=== PATIENT | female | born 1995 | race Two or more races ===

== ENCOUNTER 2024-10-18 23:02 | Observation (INO) | payer OTHER, SELFPAY ==
[2024-10-18 23:19] VITALS: BP 117/76; PULSE 95; RESP 18; RESP 98; TEMP 37
[2024-10-18 23:23] VITALS: BMI 31.1
[2024-10-18 23:24] VITALS: TEMP 37
[2024-10-18 23:45] VITALS: TEMP 37
[2024-10-18] MEDS: ACETAMINOPHEN 325 MG TABLET 1000 MG PO (23:45)
[2024-10-18 23:59] LABS: ROM Kit Lot # 57807112; ROM Swab Mixed By: DAVIH1; Rupture of Fetal Membranes Negative (Negative); Swb Mxed in Solvent 1 min? Yes
== END 2024-10-19 00:08 | disposition home or self-care (01) ==
PROVIDERS: Admitting Provider Obstetrics & Gynecology; Visit Provider Obstetrics & Gynecology
DX: O26.892 Other specified pregnancy related conditions, second trimester (principal); Z3A.20 20 weeks gestation of pregnancy; R10.30 Lower abdominal pain, unspecified; M54.9 Dorsalgia, unspecified; R51.9 Headache, unspecified
CPT/HCPCS: 59899; 84112; G0378; A9270

== ENCOUNTER 2025-01-12 23:31 | Observation (INO) | payer OTHER, MEDICAID, SELFPAY ==
[2025-01-12 23:52] VITALS: BP 116/69; PULSE 90
[2025-01-12 23:53] VITALS: PULSE 92; O2SAT 99
[2025-01-12 23:58] VITALS: PULSE 83; RESP 18; TEMP 37.1; O2SAT 99; BMI 31.8
[2025-01-13] VITALS (45 sets, daily range): BP systolic 113–124; BP diastolic 64–70; PULSE 72–126; O2SAT 93–100
[2025-01-13] MEDS: ACETAMINOPHEN 500 MG TABLET 1000 MG PO (00:30)
[2025-01-13] MEDS: TERBUTALINE SULF INJ 1 MG/ML VIAL 0.25 MG SC ×2 (01:27→01:58)
== END 2025-01-13 03:36 | disposition home or self-care (01) ==
PROVIDERS: Admitting Provider Obstetrics & Gynecology; Visit Provider Obstetrics & Gynecology
DX: O26.899 Other specified pregnancy related conditions, unspecified trimester (principal); Z3A.00 Weeks of gestation of pregnancy not specified; R10.9 Unspecified abdominal pain
CPT/HCPCS: 59025; 59899; 96372; J3105; A9270

== ENCOUNTER 2025-03-11 19:37 | Inpatient (IN) | payer OTHER, MEDICAID, SELFPAY ==
[2025-03-11] VITALS (9 sets, daily range): BP systolic 112–149; BP diastolic 67–91; PULSE 83–103; RESP 18–99; TEMP 36.6–36.8; BMI 32.1
[2025-03-11 20:30] LABS: ROM Kit Lot # 58102387
[2025-03-11 20:31] LABS: ROM Swab Mixed By: CARMP2; Rupture of Fetal Membranes Positive (Negative); Swb Mxed in Solvent 1 min? Yes
--- NOTE | 2025-03-11 20:48 | XR_ITS ---
Examination: age limited. TECHNIQUE: Limited transabdominal sonographic images pelvis Date and time: March 11, 2025, 210 hours INDICATIONS: Suspected pelvic contractions today, unknown presentation and weight FINDINGS: Viable intrauterine gestation cephalic presentation, spine posterior Cardiac motion 140 BPM. Estimated gestational age 38 weeks 5 days. Estimated weight 3615 g IMPRESSION: Viable intrauterine gestation cephalic presentation
[2025-03-11 21:09] LABS: Collection Type, Urine Clean Catch
[2025-03-11 21:11] LABS: Basophils # (Auto) 0.0 Thou/mm3 (0.0-0.2); Basophils % (Auto) 0 % (0-2.5); Eosinophils # (Auto) 0.0 Thou/mm3 (0.0-0.5); Eosinophils % (Auto) 0 % (0-10); Hematocrit 32.1 % (36.0-46.0); Hemoglobin 10.5 g/dL (12.0-16.0); Immature Granulocytes Auto 0.05 Thou/mm3 (0.00-0.00); Lymphocytes # (Auto) 2.3 Thou/mm3 (1.0-4.8); Lymphocytes % (Auto) 18 % (10-50); Mean Corpuscular HGB Conc 32.7 g/dl (31.0-37.0); Mean Corpuscular Hemoglobin 25.2 pg (25.0-35.0); Mean Corpuscular Volume 77 fL (80-100); Monocytes # (Auto) 0.8 Thou/mm3 (0.0-0.8); Monocytes % (Auto) 6 % (0-12); Neutrophils # (Auto) 9.8 Thou/mm3 (1.8-7.7); Neutrophils % (Auto) 75 % (37-80); Nucleated Red Blood Cell # 0.00 Thou/mm3 (0.00-0.00); Nucleated Red Blood Cell % 0 /100 WBC (0); Platelet Count 343 Thou/mm3 (140-440); RDW Standard Deviation 39.9 fL (36.4-46.3); Red Blood Count 4.17 Miln/mm3 (4.00-5.20); White Blood Count 13.0 Thou/mm3 (3.6-11.0)
--- NOTE | 2025-03-11 21:14 | PD.LDHP ---
Documentation for date of: 03/11/25 OB Labor/Induct. HPI History of Present Illness : 7 Para: 3 Term pregnancies: 3 pregnancies: 0 Living children: 3 History of Abortions: Spontaneous and Elective: 3 History of Vaginal deliveries: 3 History of sections: No History of : No Date of last menstrual period: 06/14/25 ALEJANDRA: 03/13/25 Gestational age based on last menstrual period: -13 History of present illness: 29-year-old 7 para 3-0-3-3 with intrauterine at 39 weeks and 5 days presents to maternal infant unit complaining of uterine contractions since 0500 on 03/11 and leaking clear fluid since 1100 on 03/11. She reports normal movement and denies any vaginal bleeding. She has care in [place] at [facility]. She has a copy of her record. She had a urine drug screen positive for marijuana in her and she had an abnormal 1 hour glucose tolerance test however her 3-hour GTT was within normal limits. She is multiparous and desires voluntary sterilization. She has a [facility] consent signed on January 29. Comments: PMHx: x 3, Spon Ab x 3. Anxiety and Depression PSHx: D and C Allergies: Bactrim FHx: see record Meds: MVI. History of Present Adequate Care: Yes Labs Labs: Positive: Rubella Titre, Negative: RPR, Hepatitis B, HIV, Chlamydia, Gonorrhea and Group Beta Strep and Unknown: Herpes Type 1 and Herpes Type 2 Review of Systems Review of Systems Narrative Review of Systems: Denies any chest pain palpitations cough fever shortness of breath or lower extremity pain. She denies any headache change in vision or right upper quadrant pain. Past Medical History Surgical History SURGICAL: Negative Section Meds Home Medications and Allergies Home Medications ?Medication ?Instructions ?Recorded ?Confirmed ?Type vits no.126-ferrous fum 1 tab PO .QD 10/18/24 03/11/25 History 28 mg iron-folic acid 800 mcg tablet (Classic ) Allergies Allergy/AdvReac Type Severity Reaction Status Date / Time sulfamethoxazole Allergy Intermediate Rash, Verified 03/11/25 20:34 swelling in her throat, & fever OB Exam Physical Exam Vital signs: Temp Pulse Resp BP 98.3 F 95 18 149/74 H 08/25/25 19:59 03/11/25 21:00 03/11/25 19:59 03/11/25 21:00 Routine HEENT Exam Comments: Within normal limits Routine Respiratory Exam Comments: Clear to auscultation bilaterally Routine Cardiovascular Exam Comments: Regular rate and Routine Abdominal Exam Comments: Gravid, term size, EFW 3610g Detailed Labor and Delivery Exam Dilation (cm): 3.5 Effacement (%): 50 station: -2 Presentation: Vertex Membranes: ruptured Comments: AmniSure + at 20:40 Routine Extremities Exam Comments: Nontender Routine Skin Exam Comments: No gross rashes or lesions Routine Neurological Exam Comments: No deficit OB Results Labs 03/11/25 20:57 03/11/25 20:57 Impressions Impression: IUP at 39 weeks and 5 days Spontaneous rupture of membranes Multiparity desires voluntary sterilization. Early Labor Anticipate spontaneous vaginal delivery Informed consent was obtained. Patient was made aware of the risks and complications of OVD and C/S and agrees with these modes of delivery if indicated.
[2025-03-11 21:18] LABS: Bilirubin,Urine Negative (Negative); Blood,Urine 1+ (Negative); Clarity,Urine Clear (Clear/Hazy); Color,Urine Yellow (Lt Yel-Yel); Glucose, Urine Negative (Negative); Ketones,Urine 1+ (Negative); Leukocyte Esterase,Urine Positive (Negative); Nitrite,Urine Negative (Negative); PH,Urine 6.5 (5.0-7.0); Protein,Urine 1+ (Neg - Trace); RBC,Urine 3 /hpf (0-3); Specific Gravity,Urine 1.027 (1.001-1.035); Squamous Epithelial Cell,Urine 4 /hpf (0-5); Urobilinogen,Urine Negative mg/dL (0.0-1.0); WBC,Urine 4 /hpf (0-5)
[2025-03-11] MEDS: RINGERS LACTATED 1000 ML 1,000 ML 125 ML IV (21:24)
[2025-03-11 21:31] LABS: Alanine Aminotransferase < 7 U/L (10-49); Albumin, Serum 4.0 gm/dL (3.5-5.0); Albumin/Globulin Ratio 1.3 (1.2-2.2); Alkaline Phosphatase 155 U/L (46-116); Anion Gap 11 (7-16); Aspartate Amino Transferase 15 U/L (0-34); BUN/Creatinine Ratio 8 Ratio (12-20); Bilirubin,Total 0.5 mg/dL (0.3-1.2); Blood Urea Nitrogen 5 mg/dL (9-23); Calcium 10.0 mg/dL (8.3-10.6); Calcium (Corrected) 10.0 mg/dL (8.5-10.1); Carbon Dioxide 21.4 mMol/L (20.0-31.0); Chloride 105 mMol/L (98-107); Creatinine (Component) 0.6 mg/dL (0.6-1.3); Estimated Creatinine Clearance 148.4 mL/min (>60); Globulin 3.1 gm/dL (2.3-3.5); Glucose 70 mg/dL (74-106); LDH (Lactate Dehydrogenase) 144 U/L (120-246); Osmolality,Calculated 269 (275-295); Potassium 3.8 mMol/L (3.4-5.1); Sodium 137 mMol/L (136-145); Total Protein 7.1 gm/dL (5.7-8.2); Uric Acid 4.6 mg/dL (3.1-7.8); eGFR > 60 See Note
[2025-03-11 21:34] LABS: Fibrinogen 466 mg/dL (175-375); INR 0.9 (0.9-1.3); Partial Thromboplastin Time 23.8 Seconds (22.0-36.0); Prothrombin Time 10.1 Seconds (9.0-12.2)
[2025-03-11 21:47] LABS: Syphilis Nonreactive (Nonreactive)
[2025-03-11] MEDS: fentaNYL CIT INJ 50 mCg/ML AMP 2ML 100 MCG IVP (23:08)
[2025-03-12] VITALS (185 sets, daily range): BP systolic 84–128; BP diastolic 51–91; PULSE 59–217; RESP 17–20; TEMP 36.5–37.3; O2SAT 87–100
[2025-03-12] MEDS: fentaNYL CIT INJ 50 mCg/ML AMP 2ML 100 MCG IVP (01:38)
[2025-03-12] MEDS: RINGERS LACTATED 1000 ML 1,000 ML 125 ML IV ×2 (05:06→06:58)
[2025-03-12 06:01] LABS: Amphetamine/Metham Scrn,Ur OB Negative (Negative); Benzoylecgonine Screen, Ur OB Negative (Negative); Opiate Screen,Urine OB Negative (Negative); THC Screen,Urine OB Negative (Negative)
[2025-03-12] MEDS: ONDANSETRON INJ 2 MG/ML INJ 2 ML 4 MG IVP (10:43)
[2025-03-12] MEDS: Ampicillin Inj 2,000 MG in SODIUM CHLORIDE 0.9% (POP) 100 ML 200 MG IV (10:44)
[2025-03-12] MEDS: OXYTOCIN in NS 30 units 30 UNIT/500 ML BAG IV (12:48)
[2025-03-12] MEDS: OXYTOCIN in NS 20 units 20 UNIT/1,000 ML BAG 125 UNIT IV (14:12)
[2025-03-12] MEDS: OXYTOCIN INJ 10 UNIT/ML VIAL IM (14:12)
[2025-03-12] MEDS: BENZO/LANO/ALOE (Dermoplast) 60 GM CAN 1 SPRAY TOP (14:13)
[2025-03-12] MEDS: TRANEXAMIC ACID 1,000 MG IVPB 1,000 MG/100 ML BAG 200 MG IV (14:13)
--- NOTE | 2025-03-12 14:23 | OBDSUM_ITS ---
Data ([place]) Data Hx Section: No : 7 Term: 3 : 0 Livin Abortions: Spontaneous & Theraputic: 3 Delivery Data ([place]) Labor Data Initiation of labor: Augmentation Induction/Augmentation Agent: Pitocin and Artificial ROM ROM date: 03/11/25 ROM time: 11:00 Amniotic membrane rupture type: Spontaneous Amniotic fluid description: Clear Delivery Data EDC: 02/18/25 EDC calculated by:: LMP/early US confirmation Date of arrival to unit: 03/11/25 Time of arrival to unit: 14:24 Onset of labor date: 03/11/25 Onset of labor time: 17:30 Complete dilation date: 03/12/25 Complete dilation time: 13:39 [place] delivery date: 03/12/25 delivery time: 13:49 Gestational age (weeks): 39 Gestational age (days): 6 Placenta delivery date: 03/12/25 Placenta delivery time: 13:52 Stage 1 total time: Labor - Stage 1 Duration 20 hours and 9 minutes Delivered by: Caitlin Zhang Delivery nurse: MICHEAL Burgess Neworn nurse: MICHEAL Valladares Machine Worker at delivery: No Support person(s) at delivery: Two bestfriends Other staff at delivery: weight control lecturerMichelle BURTON Delivery Method Delivery method: Normal Vaginal Delivery Presentation: Vertex position: OA Anesthesia Type Anesthesia Type: Epidural Delivery Room Medications Delivery room medications: Pitocin 10 u IM, Pitocin 20 u IV and Cytotec 800 ID Placenta Placenta delivery description: Spontaneous (inspected intact) Cord blood sent to lab: Yes cord blood collection: Cord Blood Type Episiotomy Episiotomy description: None (intact) EBL Estimated blood loss (ml): 400 Umbilical Cord cord description: Around Extremity (loop of cord near shoulder, posterior arm) [place] Data ([place]) [place] Data order: 1 [place]'s gender: Male Identification band number: [id number] weight (gms): 3610 g Weight (pounds): 7 lbs and 15.3 ozs [place] length: 55.88 cm 1 minute: 9 5 minutes: 9
[2025-03-12] MEDS: IBUPROFEN TAB 400 MG TABLET 800 MG PO (15:30)
--- NOTE | 2025-03-12 16:21 | PC.NURSE ---
1619: SHAHEED Zhang called. Orders received to D/C scheduled ampicillin.
[2025-03-12] MEDS: ACETAMINOPHEN 325 MG TABLET 650 MG PO ×2 (17:56→22:35)
[2025-03-12] MEDS: DOCUSATE SOD 100 MG CAPSULE PO (20:08)
[2025-03-12 22:20] LABS: Basophils # (Auto) 0.0 Thou/mm3 (0.0-0.2); Basophils % (Auto) 0 % (0-2.5); Eosinophils # (Auto) 0.0 Thou/mm3 (0.0-0.5); Eosinophils % (Auto) 0 % (0-10); Hematocrit 27.2 % (36.0-46.0); Immature Granulocytes Auto 0.03 Thou/mm3 (0.00-0.00); Lymphocytes # (Auto) 2.2 Thou/mm3 (1.0-4.8); Lymphocytes % (Auto) 19 % (10-50); Mean Corpuscular HGB Conc 32.4 g/dl (31.0-37.0); Mean Corpuscular Hemoglobin 25.5 pg (25.0-35.0); Mean Corpuscular Volume 79 fL (80-100); Monocytes # (Auto) 1.0 Thou/mm3 (0.0-0.8); Monocytes % (Auto) 9 % (0-12); Neutrophils # (Auto) 8.2 Thou/mm3 (1.8-7.7); Neutrophils % (Auto) 72 % (37-80); Nucleated Red Blood Cell # 0.00 Thou/mm3 (0.00-0.00); Nucleated Red Blood Cell % 0 /100 WBC (0); Platelet Count 296 Thou/mm3 (140-440); RDW Standard Deviation 40.9 fL (36.4-46.3); Red Blood Count 3.45 Miln/mm3 (4.00-5.20); White Blood Count 11.5 Thou/mm3 (3.6-11.0)
[2025-03-12 23:00] LABS: Hemoglobin 8.8 g/dL (12.0-16.0)
[2025-03-13] MEDS: IBUPROFEN TAB 400 MG TABLET 800 MG PO ×2 (01:57→11:16)
[2025-03-13 04:24] VITALS: BP 92/66; PULSE 58; RESP 16; TEMP 37.1
[2025-03-13 07:20] VITALS: BP 112/72; PULSE 70; RESP 16; TEMP 36.7; O2SAT 97
[2025-03-13] MEDS: DOCUSATE SOD 100 MG CAPSULE PO (07:53)
[2025-03-13] MEDS: ACETAMINOPHEN 325 MG TABLET 650 MG PO (07:53)
--- NOTE | 2025-03-13 08:38 | PD.LDPPPRG ---
Subjective Subjective Interval history: Complains of cramps. Denies dizziness. No other complaints Exam Vital Signs Temp Pulse Resp BP Pulse Ox O2 Del Method 98.1 F 70 16 112/72 97 Room Air 03/13/25 07:20 03/13/25 07:20 03/13/25 07:20 03/13/25 07:20 03/13/25 07:20 03/13/25 07:20 Narrative Exam Vital signs are stable. Afebrile. Uterus well involuted. Nontender. Fundus firm below the umbilicus. Small lochia. 2+ DTRs. Negative Homans' sign.negative Objective Labs 03/12/25 21:55 03/11/25 20:57 Labs: Laboratory Results - last 24 hr 03/12/25 21:55 WBC 11.5 H RBC 3.45 L Hgb 8.8 L Hct 27.2 L MCV 79 L MCH 25.5 MCHC 32.4 RDW Std Deviation 40.9 Plt Count 296 D Neut % (Auto) 72 Lymph % (Auto) 19 Bond % (Auto) 9 Eos % (Auto) 0 Baso % (Auto) 0 Neut # (Auto) 8.2 H Lymph # (Auto) 2.2 Bond # (Auto) 1.0 H Eos # (Auto) 0.0 Baso # (Auto) 0.0 Immature Gran # (Auto) 0.03 H Absolute Nucleated RBC 0.00 Immature Gran % 0 Nucleated RBC % 0 Assessment & Plan Assessment Comment Assessment comment: 24 hr pp Plan Comment Plan Comment: Discharge home with baby. Continue vitamins and iron. Tylenol or ibuprofen for pain. Discussed danger signs and symptoms and ER precautions with parameters. I discussed signs symptoms of infection with patient. Increase rest. Fluids. And diet patient does not have a provider in town so I advised her to make an appointment at [facility] medical clinic for you for follow-up Time Spent With Patient Time: Total time spent is greater than 50% in coordination of care (as documented) at patient's floor/unit and/or counseling patient:
--- NOTE | 2025-03-13 08:46 | ESDS_ITS ---
DS: Providers Provider Date of admission: 03/11/25 20:42 Primary care physician: Physician No Primary/Family Admitting Provider: Meng Juárez MD Attending Provider on Admission: Caitlin Zhang CNM Consults: 03/12/25 16:17 Referral Routine Comment: Attending Provider on DC: Caitlin Zhang CNM Discharging Provider: Caitlin Zhang CNM DS: Diagnosis Problem List Completed Was Problem List Reviewed/Reconciled?: Yes Summary/Hosp Course Brief History: 29-year-old 7 para 3-0-3-3 with intrauterine at 39 weeks and 5 days presents to maternal unit complaining of uterine contractions since 0500 on 03/11 and leaking clear fluid since 1100 on 03/11. She reports normal movement and denies any vaginal bleeding. She has care in [place] at [facility]. She has a copy of her record. She had a urine drug screen positive for marijuana in her and she had an abnormal 1 hour glucose tolerance test however her 3-hour GTT was within normal limits. She is multiparous and desires voluntary sterilization. She has a [facility] consent signed on January 29. Peripartum Data Delivery Method: Normal Vaginal Delivery Episiotomy Description: None (intact) Laceration Description: no complications: none Time Spent with Patient Time attestation: Total time spent providing and/or coordinating discharge services: Exam Vital Signs Temp Pulse Resp BP Pulse Ox O2 Del Method 98.1 F 70 16 112/72 97 Room Air 03/13/25 07:20 03/13/25 07:20 03/13/25 07:20 03/13/25 07:20 03/13/25 07:20 03/13/25 07:20 Discharge Plan Plan Patient Disposition: HOME (Self Care) Prescriptions/Referrals Prescriptions/Med Rec: No Action Classic 28 mg iron- 800 mcg tablet 1 tab PO .QD Patient Comments: TAKE 1 TABLET BY MOUTH EVERY DAY Referrals: No Primary/Family,Physician [Primary Care Provider] - Patient/Caregiver Discharge Instructions Meds to Beds: No Discharge Activity: resume usual activities Print Language: [place] Citizen Activity Restrictions/Additional Instructions: Discharge patient home. With baby. Continue vitamins and iron. Tylenol or ibuprofen for pain. Discussed danger signs symptoms and ER precautions parameters. Discussed signs of infection. Increase fluids. Advised patient to make an appointment with [facility] women's health clinic for this 4-week Stand Alone Forms: Irene Award Info., Patient Portal Info Letter Discharge Order Discharge Orders: Discharge (Routine); Ordered 03/13/25 Ordered By: Caitlin Zhang Planned Discharge Date 03/13/25
[2025-03-13 11:10] VITALS: BP 126/69; PULSE 79; RESP 16; TEMP 36.3; O2SAT 98
--- NOTE | 2025-03-13 16:32 | PC.SS ---
BONDERIZER OPERATOR conducted bedside contact with the patient to address nursing referral indicating patient possessed history of anxiety and history of THC.? BONDERIZER OPERATOR introduced self and role.? BONDERIZER OPERATOR explained basis of referral.? Patient confirmed past history of anxiety.? Patient relayed that she is not experiencing any impairments currently with daily functioning.? Patient reports no history of self-harm behaviors.? Denies current intent/plan of SI/HI.? , [place]; is the patient?s 4th child.? Other children are ages 13, 10, 7 years old.? Infant delivered naturally.? Patient plans on breast feeding .? FOB, Bharat Cortez; will be involved in the rearing of the infant.? Patient is aligned with WIC and SNAP.? Patient is not aligned with TANF.? 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 Patient denies history of alcohol/drug abuse.? Toxicology report negative.? Patient denies episodes of domestic violence.? Patient reports possessing active CWS case.? Per patient still possesses custody of children.? CWS social services coordinator is Jaclyn Bishop .? Patient has access to appropriate supplies and equipment; to include a car seat.? FOB will provide transportation upon discharge.? Patient describes possessing support system consisting of FOB, and family.? BONDERIZER OPERATOR provided the patient with community resources to include Parenting Network and Warm Line.? Due to open CWS case patient informed that BONDERIZER OPERATOR will initiate contact with assigned CWS social services coordinator per hospital policy.? Patient acknowledged plan for county social services coordinator to be contacted.? BONDERIZER OPERATOR updated bedside nurse.?
--- NOTE | 2025-03-13 16:32 | PC.SS ---
RN BABY attempted phone call with patient's CWS adoption social worker, Jaclyn Bishop . No response. RN BABY left voicemail requesting return call.
--- NOTE | 2025-03-13 16:33 | PC.SS ---
CONTROLLER COAL OR ORE submitted CWS report due to patient possessing active CWS case. Verbal report provided to Paris German. Written report submitted electronically. Copies of report placed in chart.
== END 2025-03-13 16:25 | disposition home or self-care (01) | DRG 807 ==
LOC: S4SX 03-12 14:05 → S4NX 03-12 17:45
PROVIDERS: Admitting Provider Specialist; Visit Provider Advanced Practice Midwife
DX: O42.02 Full-term premature rupture of membranes, onset of labor within 24 hours of rupture (principal); Z37.0 Single live birth; Z3A.39 39 weeks gestation of pregnancy; Z88.2 Allergy status to sulfonamides
CPT/HCPCS: 36415; 59025; 59409; 76815; 80053; 80307; 81001; 83615; 84112; 84550; 85025; 85384; 85610; 85730; 86780; 86850; 86900; 86901; 86923; 94762; J0290; J2405; J2590; J2795; J3010; J3490; J7120; S0191; A9270

== ENCOUNTER 2025-03-28 08:10 | Outpatient (AMB) | payer OTHER, MEDICAID, SELFPAY ==
[2025-03-28 08:22] VITALS: BP 110/72; PULSE 80; RESP 16; TEMP 36.2; O2SAT 98
--- NOTE | 2025-03-28 08:22 | AMB.OBPP ---
Vital Signs 03/28/25 08:22 Weight 78.982 kg Weight Measurement Method Standing Scale BP 110/72 Blood Pressure Source Automatic Cuff Blood Pressure Location Left Upper Arm Position Sitting Respiration 16 Pulse 80 Pulse Source Monitor Temp 97.2 F Temp Source Oral Pulse Oximetry (%) 98 Oxygen Delivery Method Room Air Allergies/Home Meds Allergies & Medications Allergies sulfamethoxazole Allergy (Intermediate, Verified 03/28/25 08:26) Rash, swelling in her throat, & fever Medication Reconciliation vits no.126-ferrous fum 28 mg iron-folic acid 800 mcg tablet (Classic ) 1 tab PO .QD 10/18/24 [History Confirmed 03/28/25] Intake Visit Data Collection New Patient or Established: Established Patient (seen at 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: Past Medical History Past Medical History: No Hx Neurological Disorders, No Hx Cardiac Disorders, No Hx Cancer, Yes Hx Blood Disorders, Yes Hx Anemia, No Hx Gastrointestinal Disorders, No Hx Renal Disease, No Hx Diabetes Mellitus Type 1, No Hx Diabetes Mellitus Type 2 and No Psychiatric Problems Questionnaires Covid-19 Vaccine Questionnaire Has patient been vacinated for Covid-19 Have you been vacinated for Covid-19: Yes Social History Living Situation History Marital Status: Single Lives With: Family Housing: House Tobacco History Smoking Status: Never smoker Second Hand Smoke Exposure: No Alcohol History Alcohol Intake: Current Domestic Abuse History Do You Feel Safe at Home: Yes EPDS - PP Depression Screening [place] Pospartum Depression Screen I have been able to laugh and see the funny side of things: (0) As much as I always could I have looked forward with enjoyment to things: (0) As much as I ever did I have blamed myself unnecessarily when things went wrong: (0) No, never I have been anxious or worried for no good reason: (0) No, not at all I have felt scared or panicky for no very good reason: (0) No, not at all Things have been getting on top of me: (0) No, I have been coping as well as ever I have been so unhappy that I have had difficulty sleeping: (0) No, not at all I have felt sad or miserable: (0) No, not at all I have been so unhappy that I have been crying: (0) No, never The thought of harming myself has occurred to me: (0) Never Total Score: EPDS Score: Referral is indicated for score of 9 or more, suicidal, or if provider believes patient is depressed regardless of score.: 0 EPDS completed yes HPI Interval History: 29-year-old 7 para 4 for 2-week . Patient was followed in [place] for her care and delivered at [facility]. She had a vaginal delivery March 12, 2025. Baby boy who weighed 7 pounds 14 ounces patient is breast-feeding. She denies any signs or symptoms of depression. She is happy and bonding. Father the baby is involved. She has good help and support at home. Patient is planning to do ligation and she has a signed consent. Denies any complaints or bleeding at this Was or delivery considered high risk: No Delivery type: vaginal Was labor induced: no Gestational age at delivery (weeks): 39.6 Delivery date: 03/12/25 Delivering provider: shivani lange Delivery complications: Yes Is patient infant: No Is patient sexually active: No Contraception planned: BTL Review of Systems Review of Systems ROS limited to current RECORD SYSTEMS ANALYST complaints: Yes Exam Narrative Physical exam: Normal heart rate and rhythm. Lungs clear no wheezes. Abdomen is soft nontender. Uterus well involuted. Perineum is intact no lacerations. No swelling. Small lochia. Negative Homans' sign. 2+ DTRs. No edema no swelling. Breasts are soft General Limitations: no limitations General Appearance: alert, in no apparent distress, comfortable, cooperative, healthy appearing, well developed and well groomed Head Head exam: atraumatic, normocephalic and normal inspection Resp Respiratory exam: Present normal lung sounds bilaterally Card Cardiovascular exam: Present regular rate, normal rhythm and normal heart sounds Abdominal Abdominal exam: Present soft and normal bowel sounds Extremities Extremities exam: Present normal inspection and full ROM Psych Psychiatric exam: Present normal affect and normal mood Office Procedures OB Clinic LOC & Office Proc's Nursing/Assessment Patient Status: Established Patient OB Clinic Nursing Assessment: Medication Reconciliation, Update PMH in EMR and Vital Signs OB Clinic Coordination of Care: Education Complex Pt/Fam, Consent,records obtained, informed consent, Lab and Imaging orders, Results/Orders obtained and Staff clarify orders Established Patient Charge Established Patient Point Assignment: 85 Post Follow-up Visit Post Follow up Visit: Yes Assessment & Plan Diagnosis / Problem List (1) 2 weeks follow-up: Status: Acute Care Reviewed delivery summary and any complications: Yes Uterus involuted to: 3 below umb Perineal / incision healing noted: Yes Screened for depression: Yes Depression counseling provided: No Discussed family planning & contraception: Yes Contraception planned: BTL Counseling on safe resumption of sexual activity: Yes Counseling on gradual excercise: Yes Discussed and concerns (describe), provided support: Yes Counseled on good nutrition, hydration, and self care: No Reviewed vaccine status: No care discussed; questions answered: feeding Follow up: routine/prn Additional counseling & anticipatory guidance provided: Okay for diet and exercise. Continue prenatals. No sex that is unprotected. Discussed latching and breast-feeding positions. And schedule with OB next visit to schedule tubal
== END 2025-03-28 09:01 | disposition home or self-care (01) ==
LOC: HODSOBC 08:10
PROVIDERS: Supervising Provider Advanced Practice Midwife; Visit Provider Advanced Practice Midwife
DX: Z39.2 Encounter for routine postpartum follow-up (principal); Z39.1 Encounter for care and examination of lactating mother
CPT/HCPCS: 59430; 99214; G0463

== ENCOUNTER 2025-04-30 14:12 | Outpatient (AMB) | payer OTHER, MEDICAID, SELFPAY ==
[2025-04-30 14:34] VITALS: BP 126/83; PULSE 64; RESP 14; TEMP 36.4; O2SAT 99; BMI 29.1
--- NOTE | 2025-04-30 14:34 | AMBOBPPN_ITS ---
Vital Signs 04/30/25 14:34 Height 1.65 m Height Method Stated Weight 79.379 kg Weight Measurement Method Standing Scale BMI 29.1 BP 126/83 Blood Pressure Source Automatic Cuff Blood Pressure Location Left Upper Arm Position Sitting Respiration 14 Pulse 64 Pulse Source Monitor Temp 97.6 F Temp Source Oral Pulse Oximetry (%) 99 Oxygen Delivery Method Room Air Allergies/Home Meds Allergies & Medications Allergies sulfamethoxazole Allergy (Intermediate, Verified 04/30/25 14:35) Rash, swelling in her throat, & fever Medication Reconciliation vits no.126-ferrous fum 28 mg iron-folic acid 800 mcg tablet (Classic ) 1 tab PO .QD 10/18/24 [History Confirmed 04/30/25] Intake Visit Data Collection New Patient or Established: Established Patient (seen at [facility] within 3 years) Reason for Visit:: Seen by Clinical Staff ONLY (RN/MA): No Malt Liqu[employer] Sales Supervisor Required: No Do You Feel Safe at Home: Yes Authorities Contacted: N/A PCP or OBGYN visit in last 3 months: Yes Hx Now: No Are you currently on any form of Control: No Pain Present Currently: No Pain Scale Used: Ngo-Brito/Numerical Pain scale:: 0 Smoking Status Smoking Status: Never smoker DATA 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: Past Medical History Past Medical History: No Hx Neurological Disorders, No Hx Cardiac Disorders, No Hx Cancer, Yes Hx Blood Disorders, Yes Hx Anemia, No Hx Gastrointestinal Disorders, No Hx Renal Disease, No Hx Diabetes Mellitus Type 1, No Hx Diabetes Mellitus Type 2 and No Psychiatric Problems Questionnaires Covid-19 Vaccine Questionnaire Has patient been vacinated for Covid-19 Have you been vacinated for Covid-19: Yes Social History Living Situation History Lives With: Family Housing: House Tobacco History Smoking Status: Never smoker Second Hand Smoke Exposure: No Alcohol History Alcohol Intake: Current Domestic Abuse History Do You Feel Safe at Home: Yes EPDS - PP Depression Screening [place] Pospartum Depression Screen I have been able to laugh and see the funny side of things: (0) As much as I always could I have looked forward with enjoyment to things: (0) As much as I ever did I have blamed myself unnecessarily when things went wrong: (0) No, never I have been anxious or worried for no good reason: (0) No, not at all I have felt scared or panicky for no very good reason: (0) No, not at all Things have been getting on top of me: (0) No, I have been coping as well as ever I have been so unhappy that I have had difficulty sleeping: (0) No, not at all I have felt sad or miserable: (0) No, not at all I have been so unhappy that I have been crying: (0) No, never The thought of harming myself has occurred to me: (0) Never EPDS completed yes HPI Interval History: Consultation for bilateral tubal ligation Patient presents for consultation for bilateral tubal ligation. She is status post vaginal delivery on March 12, 2025, approximately 2 months ago. She desires permanent sterilization and has already signed a consent form prior to delivery while still , which was more than 30 days ago. 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 Exam General General Appearance: alert, in no apparent distress and healthy appearing Head Head exam: atraumatic Neck Neck exam: Present normal inspection and trachea midline Chest Chest inspection: Present normal inspection and symmetric chest wall rise External exam: Present normal external exam; Absent tenderness Neuro Neurological exam: Present oriented X3 Psych Psychiatric exam: Present normal affect and normal mood Office Procedures OBC Clinic LOC & Office Proc's Nursing/Assessment Patient Status: Established Patient OB Clinic Nursing Assessment: Medication Reconciliation, Update PMH in EMR and Vital Signs OB Clinic Coordination of Care: Complex Care and Chronic Disease 1-5, Consent,records obtained, informed consent, Education Simp Pt/Fam, 1 Ins Authorization, Lab and Imaging orders, Results/Orders obtained and Staff clarify orders Established Patient Charge Established Patient Point Assignment: 120 Established Patient Point Charge: EP Level 4 (120-155) Assessment & Plan Diagnosis / Problem List (1) Encounter for sterilization: Status: Acute Plan Bilateral tubal ligation consultation Assessment: Patient is requesting permanent sterilization via bilateral tubal ligation. She is 2 months following vaginal delivery on March 12, 2025. Consent form was completed prior to delivery while still , meeting the required 30-day waiting period. Patient is appropriate candidate for laparoscopic bilateral salpingectomy. Plan: - Laparoscopic bilateral salpingectomy planned as outpatient procedure - Procedure involves one small umbilical incision and two lateral incisions - Complete removal of fallopian tubes from uterine to ovarian ends - No anticipated hormonal changes or menstrual cycle changes as ovaries and uterus remain intact - Permanent and irreversible sterilization method - Submit insurance authorization request - office clerk assistant will contact patient with scheduling options once authorization approved - Surgery typically performed on with 2-day recovery period - Patient can return to work on Tuesday following procedure
== END 2025-04-30 14:49 | disposition home or self-care (01) ==
LOC: HODSOBC 14:12
PROVIDERS: Supervising Provider Obstetrics & Gynecology; Visit Provider Obstetrics & Gynecology
DX: Z30.2 Encounter for sterilization (principal); Z88.2 Allergy status to sulfonamides
CPT/HCPCS: 99214; G0463